=== PATIENT | male | born 1940 | race Caucasian/White ===

== ENCOUNTER 2016-11-28 06:03 | Day surgery (SDC) | payer MEDICARE, BC ==
[~2016-11-28] VITALS: Ht 165.1 cm; Wt 75.0 kg
[2016-11-28 06:49] VITALS: Ht 165.1 cm; Wt 75.0 kg
[2016-11-28] MEDS ORDERED: THYROID PO (07:12)
[2016-11-28 07:21] VITALS: BP 185/86; PULSE 44; RESP 12
[2016-11-28] MEDS ORDERED: PROPOFOL 60 ML ONE (07:25)
[2016-11-28] MEDS ORDERED: MIDAZOLAM 1 MG/ML 2 ML INJ ONE (07:25)
[2016-11-28 08:29] VITALS: BP 153/72; PULSE 44; RESP 14
--- NOTE | 2016-12-02 09:18 | GILP ---
DATE OF PROCEDURE: 11/28/2016 PROCEDURE PERFORMED: Colonoscopy. SURGEON: Meggan Earl MD PREOPERATIVE DIAGNOSIS: Screening colonoscopy. POSTOPERATIVE DIAGNOSES: 1. Colonoscopy all the way to the cecum. 2. Diverticulosis of the colon. 3. Internal hemorrhoids. 4. No colon neoplasm was identified. INDICATION: Mr. Ted Rodriguez is a 76-year-old male patient who noticed a change in the bowel habits. He never had a screening colonoscopy. He was scheduled for screening colonoscopy. The procedure and possible complications were well explained to the patient. He understood and consented to the procedure. DESCRIPTION OF PROCEDURE: Under the influence of anesthesia, the colonoscope was carefully introduced into the rectum and under direct vision it was advanced all the way to the cecum. Findings: The patient had diverticulosis of the colon. He also had internal hemorrhoids. No colon neoplasm was identified. He tolerated the procedure very well. There was no complication from the procedure. At the end of procedure, he was awake with stable vital signs and he was discharged home in the care of his family. IMPRESSION: 1. Colonoscopy all the way to the cecum. 2. Diverticulosis of the colon. 3. Internal hemorrhoids. 4. No colon neoplasm was identified. PLAN: High-fiber diet. Because of the patient's age, he will not need another screening colonoscopy. Dictated By: MD HILARY Garcia/ai/haily /Document#: [id number]
== END 2016-11-28 17:19 | disposition home or self-care (01) ==
LOC: GIL 06:03
PROVIDERS: ATTEND Internal Medicine Gastroenterology
DX: Z12.11 Encounter for screening for malignant neoplasm of colon (principal); K57.90 Diverticulosis of intestine, part unspecified, without perforation or abscess without bleeding; K64.8 Other hemorrhoids
CPT/HCPCS: G0121; J2250